=== PATIENT | male | born 1940 | race Caucasian/White ===

== ENCOUNTER → 2016-04-25 | Outpatient (CLI) | payer MEDICARE ==
[2016-04-25 13:12] LABS: ALBUMIN/GLOBULIN RATIO 1.11 (1.00-1.93); ALKALINE PHOSPHATASE 79 U/L (45-117); ALT/SGPT 24 U/L (12-78); ANION GAP 9 MEQ/L (8-16); AST/SGOT 17 U/L (15-37); BILIRUBIN,TOTAL 0.4 MG/DL (0.2-1.0); BLOOD UREA NITROGEN 22 MG/DL (7-18); CALCIUM LEVEL 8.9 MG/DL (8.8-10.2); CARBON DIOXIDE LEVEL 27 MEQ/L (21-32); CHLORIDE LEVEL 107 MEQ/L (98-107); CHOLESTEROL LEVEL 207 MG/DL (<200); CREATININE FOR GFR 0.94 MG/DL (0.70-1.30); GLOMERULAR FILTRATION RATE > 60.0 (>42); GLUCOSE, FASTING 120 MG/DL (83-110); POTASSIUM SERUM 3.7 MEQ/L (3.5-5.1); SODIUM LEVEL 143 MEQ/L (136-145); TOTAL PROTEIN 7.6 GM/DL (6.4-8.2); TRIGLYCERIDES LEVEL 211 MG/DL (<150); URIC ACID 6.1 MG/DL (3.5-7.2)
== END ==
LOC: M WUC 08:07
PROVIDERS: ATTEND Nurse Practitioner Family
DX: M10.9 Gout, unspecified (principal); E78.4 Other hyperlipidemia; I10 Essential (primary) hypertension

== ENCOUNTER → 2016-07-04 | Outpatient (REF) | payer MEDICARE ==
[2016-07-07 00:11] LABS: PSA % FREE 33.8 % (.); PSA FREE 1.52 ng/mL; PSA TOTAL 4.5 ng/mL (0.0-4.0)
== END ==
LOC: M LABWUC 19:52
PROVIDERS: ATTEND Urology
DX: R97.20 Elevated prostate specific antigen [PSA] (principal)

== ENCOUNTER → 2016-10-25 | Outpatient (CLI) | payer MEDICARE ==
[2016-10-25 09:39] LABS: ALBUMIN 3.7 GM/DL (3.2-5.2); ALKALINE PHOSPHATASE 68 U/L (45-117); ALT/SGPT 22 U/L (12-78); ANION GAP 6 MEQ/L (8-16); AST/SGOT 18 U/L (15-37); BILIRUBIN,TOTAL 0.4 MG/DL (0.2-1.0); BLOOD UREA NITROGEN 21 MG/DL (7-18); CALCIUM LEVEL 8.8 MG/DL (8.8-10.2); CARBON DIOXIDE LEVEL 30 MEQ/L (21-32); CHLORIDE LEVEL 107 MEQ/L (98-107); CHOLESTEROL LEVEL 192 MG/DL (<200); CREATININE FOR GFR 0.97 MG/DL (0.70-1.30); GLOMERULAR FILTRATION RATE > 60.0 (>42); GLUCOSE, FASTING 107 MG/DL (83-110); POTASSIUM SERUM 4.7 MEQ/L (3.5-5.1); SODIUM LEVEL 143 MEQ/L (136-145); TOTAL PROTEIN 7.4 GM/DL (6.4-8.2); TRIGLYCERIDES LEVEL 105 MG/DL (<150); URIC ACID 6.1 MG/DL (3.5-7.2)
== END ==
LOC: M WUC 08:09
PROVIDERS: ATTEND Nurse Practitioner Family
DX: I10 Essential (primary) hypertension (principal); E78.4 Other hyperlipidemia; M10.9 Gout, unspecified

== ENCOUNTER → 2016-11-11 | Outpatient (REF) | payer MEDICARE ==
[2016-11-12 14:15] LABS: PSA TOTAL 3.3 ng/mL (0.0-4.0)
== END ==
LOC: M SMT 13:04
PROVIDERS: ATTEND Nurse Practitioner Women's Health
DX: R97.20 Elevated prostate specific antigen [PSA] (principal); N40.1 Benign prostatic hyperplasia with lower urinary tract symptoms; R33.9 Retention of urine, unspecified
CPT/HCPCS: 81001; 84154; 87086; G0463

== ENCOUNTER → 2017-04-25 | Outpatient (CLI) | payer MEDICARE ==
[2017-04-25 09:00] LABS: BASO % 0.3 % (0.0-1.0); EOS # 0.1 10^3/uL (0.0-0.50); EOS % 1.1 % (0.0-3.0); HEMATOCRIT 43.8 % (42.0-52.0); HEMOGLOBIN 14.2 g/dl (14.0-18.0); IMMATURE GRANULOCYTE % 0.3 % (0-3.0); LYMPH # 1.4 10^3/uL (1.5-4.5); LYMPH % 22.5 % (24.0-44.0); MEAN CORPUSCULAR HEMOGLOBIN 27.6 pg (27.0-33.0); MEAN CORPUSCULAR HGB CONC 32.4 g/dl (32.0-36.5); MONO # 0.4 10^3/uL (0.0-0.8); MONO % 6.9 % (0.0-5.0); NEUTROPHILS # 4.2 10^3/uL (1.8-7.7); NEUTROPHILS % 68.9 % (36.0-66.0); PLATELET COUNT, AUTOMATED 190 10^3/uL (150-450); RED BLOOD COUNT 5.15 10^6/uL (4.30-6.10); RED CELL DISTRIBUTION WIDTH 13.2 % (11.5-14.5); WHITE BLOOD COUNT 6.1 10^3/uL (4.0-10.0)
[2017-04-25 09:13] LABS: ESTIMATED AVERAGE GLUCOSE 114 MG/DL (60-110); HEMOGLOBIN A1c 5.6 %
[2017-04-25 09:25] LABS: ALBUMIN/GLOBULIN RATIO 0.98 (1.00-1.93); ALKALINE PHOSPHATASE 77 U/L (45-117); ALT/SGPT 20 U/L (12-78); ANION GAP 6 MEQ/L (8-16); AST/SGOT 18 U/L (7-37); BILIRUBIN,TOTAL 0.6 MG/DL (0.2-1.0); BLOOD UREA NITROGEN 19 MG/DL (7-18); CALCIUM LEVEL 9.2 MG/DL (8.8-10.2); CARBON DIOXIDE LEVEL 31 MEQ/L (21-32); CHLORIDE LEVEL 105 MEQ/L (98-107); CREATININE FOR GFR 0.96 MG/DL (0.70-1.30); GLOMERULAR FILTRATION RATE > 60.0 (>42); GLUCOSE, FASTING 122 MG/DL (70-100); POTASSIUM SERUM 4.4 MEQ/L (3.5-5.1); SODIUM LEVEL 142 MEQ/L (136-145); TOTAL PROTEIN 8.1 GM/DL (6.4-8.2); URIC ACID 6.1 MG/DL (3.5-7.2)
== END ==
LOC: M WUC 08:17
DX: I10 Essential (primary) hypertension (principal); M10.9 Gout, unspecified; R73.01 Impaired fasting glucose
CPT/HCPCS: 84550

== ENCOUNTER → 2017-10-24 | Outpatient (CLI) | payer MEDICARE ==
[2017-10-24 09:11] LABS: BASO % 0.2 % (0.0-1.0); EOS # 0.1 10^3/uL (0.0-0.50); EOS % 1.6 % (0.0-3.0); HEMATOCRIT 39.9 % (42.0-52.0); IMMATURE GRANULOCYTE % 0.2 % (0-3.0); LYMPH # 1.2 10^3/uL (1.5-4.5); LYMPH % 23.1 % (24.0-44.0); MEAN CORPUSCULAR HEMOGLOBIN 28.3 pg (27.0-33.0); MEAN CORPUSCULAR HGB CONC 32.6 g/dl (32.0-36.5); MEAN CORPUSCULAR VOLUME 86.7 fl (80.0-96.0); MONO # 0.4 10^3/uL (0.0-0.8); MONO % 7.7 % (0.0-5.0); NEUTROPHILS # 3.4 10^3/uL (1.8-7.7); NEUTROPHILS % 67.2 % (36.0-66.0); PLATELET COUNT, AUTOMATED 147 10^3/uL (150-450); RED CELL DISTRIBUTION WIDTH 13.4 % (11.5-14.5); WHITE BLOOD COUNT 5.1 10^3/uL (4.0-10.0)
[2017-10-24 10:14] LABS: ALBUMIN 3.7 GM/DL (3.2-5.2); ALKALINE PHOSPHATASE 72 U/L (45-117); ALT/SGPT 19 U/L (12-78); ANION GAP 6 MEQ/L (8-16); AST/SGOT 19 U/L (7-37); BILIRUBIN,TOTAL 0.6 MG/DL (0.2-1.0); BLOOD UREA NITROGEN 17 MG/DL (7-18); CALCIUM LEVEL 8.9 MG/DL (8.8-10.2); CARBON DIOXIDE LEVEL 31 MEQ/L (21-32); CHLORIDE LEVEL 104 MEQ/L (98-107); CHOLESTEROL LEVEL 187 MG/DL (<200); CHOLESTEROL RISK RATIO 3.816 (<5); CREATININE FOR GFR 0.99 MG/DL (0.70-1.30); GLOMERULAR FILTRATION RATE > 60.0 (>42); GLUCOSE, FASTING 110 MG/DL (70-100); HDL CHOLESTEROL 49 MG/DL (>40); NON-HDL-C 138 MG/DL; POTASSIUM SERUM 4.3 MEQ/L (3.5-5.1); SODIUM LEVEL 141 MEQ/L (136-145); TOTAL PROTEIN 7.4 GM/DL (6.4-8.2); TRIGLYCERIDES LEVEL 85 MG/DL (<150)
== END ==
LOC: M WUC 08:13
DX: I10 Essential (primary) hypertension (principal); M10.9 Gout, unspecified; E78.4 Other hyperlipidemia
CPT/HCPCS: 84550

== ENCOUNTER → 2018-01-20 | Outpatient (CLI) | payer MEDICARE ==
[2018-01-20 10:13] LABS: ALBUMIN/GLOBULIN RATIO 1.08 (1.00-1.93); ALKALINE PHOSPHATASE 75 U/L (45-117); ALT/SGPT 31 U/L (12-78); ANION GAP 5 MEQ/L (8-16); AST/SGOT 27 U/L (7-37); BILIRUBIN,TOTAL 0.5 MG/DL (0.2-1.0); BLOOD UREA NITROGEN 26 MG/DL (7-18); CALCIUM LEVEL 9.6 MG/DL (8.8-10.2); CARBON DIOXIDE LEVEL 30 MEQ/L (21-32); CHLORIDE LEVEL 105 MEQ/L (98-107); CHOLESTEROL LEVEL 145 MG/DL (<200); CHOLESTEROL RISK RATIO 2.301 (<5); CREATININE FOR GFR 0.89 MG/DL (0.70-1.30); GLOMERULAR FILTRATION RATE > 60.0 (>42); GLUCOSE, FASTING 110 MG/DL (70-100); HDL CHOLESTEROL 63 MG/DL (>40); LDL CHOLESTEROL 71 MG/DL (<100); NON-HDL-C 82 MG/DL; POTASSIUM SERUM 5.1 MEQ/L (3.5-5.1); SODIUM LEVEL 140 MEQ/L (136-145); TOTAL PROTEIN 7.7 GM/DL (6.4-8.2); TRIGLYCERIDES LEVEL 54 MG/DL (<150)
[2018-01-21 15:23] LABS: PSA TOTAL 3.5 ng/mL (0.0-4.0)
== END ==
LOC: M WUC 08:35 → M LAB 09:18
DX: N40.0 Benign prostatic hyperplasia without lower urinary tract symptoms (principal); E78.49 Other hyperlipidemia; I10 Essential (primary) hypertension
CPT/HCPCS: 80053

== ENCOUNTER → 2018-06-27 | Outpatient (CLI) | payer MEDICARE ==
[2018-06-27 13:45] LABS: HEMATOCRIT 39.1 % (42.0-52.0); HEMOGLOBIN 12.3 g/dl (13.5-17.5); MEAN CORPUSCULAR HEMOGLOBIN 28.1 pg (27.0-33.0); MEAN CORPUSCULAR HGB CONC 31.5 g/dl (32.0-36.5); MEAN CORPUSCULAR VOLUME 89.5 fl (80.0-96.0); PLATELET COUNT, AUTOMATED 185 10^3/uL (150-450); RED BLOOD COUNT 4.37 10^6/uL (4.30-6.10); WHITE BLOOD COUNT 6.2 10^3/uL (4.0-10.0)
[2018-06-27 13:48] LABS: CALCIUM LEVEL 9.1 MG/DL (8.8-10.2); CREATININE FOR GFR 1.86 MG/DL (0.70-1.30); GLOMERULAR FILTRATION RATE 37.7 (>42); POTASSIUM SERUM 4.3 MEQ/L (3.5-5.1)
[2018-06-27 14:09] LABS: APPEARANCE, URINE CLEAR (CLEAR); BACTERIA, URINE AUTO NEGATIVE (NEGATIVE); BILIRUBIN, URINE AUTO NEGATIVE (NEGATIVE); BLOOD, URINE BLOOD NEGATIVE (NEGATIVE); COLOR, URINE STRAW (YELLOW); GLUCOSE, URINE (UA) AUTO NEGATIVE (NEGATIVE); KETONE, URINE AUTO NEGATIVE (NEGATIVE); LEUKOCYTE ESTERASE, URINE AUTO NEGATIVE (NEGATIVE); NITRITE, URINE AUTO NEGATIVE (NEGATIVE); PROTEIN, URINE AUTO NEGATIVE (NEGATIVE); RBC, URINE AUTO 2 /HPF (0-3); SPECIFIC GRAVITY URINE AUTO 1.008 (1.002-1.035); SQUAMOUS EPITHELIAL CELL UR AU 0 /HPF (0-6); UROBILINOGEN, URINE AUTO 0.2 mg/dL (0.0-2.0); WBC, URINE AUTO 1 /HPF (0-3)
== END ==
LOC: M SMT 09:33
PROVIDERS: ATTEND Nurse Practitioner Women's Health
DX: R33.9 Retention of urine, unspecified (principal)
CPT/HCPCS: 36415; 51702; 51798; 80048; 81001; 85027; 87086; G0463

== ENCOUNTER → 2018-06-28 | Outpatient (CLI) | payer MEDICARE ==
--- NOTE | 2018-06-28 10:44 | REP ---
CT abdomen pelvis without IV or oral contrast: History: BPH. Urinary incontinence and retention. No comparison CT study. 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 There are fibrotic changes in the lung bases bilaterally. Vascular calcification is noted. Calcified gallstone is visible in the gallbladder. The liver and spleen are normal in size homogeneous in texture. No adrenal lesion is seen on either side. The pancreas is unremarkable. There is left colonic diverticulosis fairly extensively without evidence of diverticulitis. Small and large bowel loops are otherwise unremarkable. The appendix is not definitely appreciated but there is no inflammatory change. There is a Garduno catheter in the urinary bladder which shows a diffuse somewhat heterogeneous and a wall thickening but is otherwise empty. There is perivesical edema in the perivesical fat. There are several bladder calculi inferiorly adjacent to the Garduno balloon in the lumen of the urinary bladder. The largest of these measures 8 mm in greatest diameter. There are three separately identifiable bladder calculi. There are also some phleboliths in the pelvis. Prostate is enlarged. Seminal vesicles are unremarkable. There is bilateral moderate hydronephrosis. Redundant dilated ureters are seen. No ureteral calculus is observed. There is an intrarenal calculus in the right mid kidney measuring 4 mm in diameter. There is a arterial vascular calcification in the left renal pelvis. No nephrolithiasis on the left. No abnormalities noted in the pancreas. No retroperitoneal mass or adenopathy is seen. Impression: Moderate degree of bilateral hydronephrosis and hydroureter. No ureteral calculus seen. Marked diffuse bladder wall thickening. There are several bladder calculi. Prostate is enlarged. Garduno catheter noted. There is an intrarenal calculus in the right mid kidney 4 mm in diameter. Electronically Signed by Levon Mercado MD 06/28/2018 08:03 P
== END ==
LOC: M RAD 07:17
PROVIDERS: ATTEND Nurse Practitioner Women's Health
DX: N40.1 Benign prostatic hyperplasia with lower urinary tract symptoms (principal); N13.2 Hydronephrosis with renal and ureteral calculous obstruction

== ENCOUNTER → 2018-07-04 | Outpatient (CLI) | payer MEDICARE ==
[2018-07-04 13:53] LABS: CALCIUM LEVEL 8.9 MG/DL (8.8-10.2); CREATININE FOR GFR 1.76 MG/DL (0.70-1.30); GLOMERULAR FILTRATION RATE 40.2 (>42); POTASSIUM SERUM 4.7 MEQ/L (3.5-5.1)
== END ==
LOC: M SMT 09:26
PROVIDERS: ATTEND Nurse Practitioner Women's Health
DX: R33.9 Retention of urine, unspecified (principal)
CPT/HCPCS: 36415; 80048; G0463

== ENCOUNTER → 2018-07-24 | Outpatient (CLI) | payer MEDICARE ==
[2018-07-24 08:59] LABS: BASO % 0.4 % (0.0-1.0); EOS # 0.2 10^3/uL (0.0-0.50); EOS % 3.7 % (0.0-3.0); HEMOGLOBIN 11.5 g/dl (13.5-17.5); LYMPH # 1.2 10^3/uL (1.5-4.5); LYMPH % 23.8 % (24.0-44.0); MEAN CORPUSCULAR HEMOGLOBIN 28.2 pg (27.0-33.0); MEAN CORPUSCULAR HGB CONC 31.9 g/dl (32.0-36.5); MEAN CORPUSCULAR VOLUME 88.2 fl (80.0-96.0); MONO # 0.4 10^3/uL (0.0-0.8); MONO % 8.2 % (0.0-5.0); NEUTROPHILS # 3.2 10^3/uL (1.8-7.7); NEUTROPHILS % 63.3 % (36.0-66.0); PLATELET COUNT, AUTOMATED 150 10^3/uL (150-450); RED BLOOD COUNT 4.08 10^6/uL (4.30-6.10); WHITE BLOOD COUNT 5.1 10^3/uL (4.0-10.0)
[2018-07-24 09:52] LABS: ALBUMIN 3.7 GM/DL (3.2-5.2); ALT/SGPT 21 U/L (12-78); BILIRUBIN,TOTAL 0.4 MG/DL (0.2-1.0); BLOOD UREA NITROGEN 25 MG/DL (7-18); CALCIUM LEVEL 8.8 MG/DL (8.8-10.2); CARBON DIOXIDE LEVEL 30 MEQ/L (21-32); CHLORIDE LEVEL 106 MEQ/L (98-107); CHOLESTEROL LEVEL 139 MG/DL (<200); CHOLESTEROL RISK RATIO 2.482 (<5); CREATININE FOR GFR 1.19 MG/DL (0.70-1.30); GLOMERULAR FILTRATION RATE > 60.0 (>42); GLUCOSE, FASTING 110 MG/DL (70-100); HDL CHOLESTEROL 56 MG/DL (>40); LDL CHOLESTEROL 68 MG/DL (<100); NON-HDL-C 83 MG/DL; POTASSIUM SERUM 4.5 MEQ/L (3.5-5.1); SODIUM LEVEL 141 MEQ/L (136-145); TOTAL PROTEIN 7.1 GM/DL (6.4-8.2); TRIGLYCERIDES LEVEL 73 MG/DL (<150); URIC ACID 6.7 MG/DL (3.5-7.2)
[2018-07-24 10:32] LABS: HEMOGLOBIN A1c 5.6 %
== END ==
LOC: M LAB 08:16
PROVIDERS: ATTEND Nurse Practitioner Family
DX: I10 Essential (primary) hypertension (principal); M10.9 Gout, unspecified; R73.01 Impaired fasting glucose; E78.49 Other hyperlipidemia

== ENCOUNTER 2019-05-03 10:21 | Day surgery (SDC) | payer MEDICARE ==
[~2019-05-03] VITALS: Ht 180.3 cm; Wt 77.1 kg
[~2019-05-03 10:21] MED LIST: ASPI81TA85 PO; ATEN50TA9 PO; ATOR1TAB19 PO; CEFUROXIME 1MG/0.1ML INTRACAMERAL INJ As Ordered ONE; DUOVISC (0.50ML VISCOAT/0.55ML PROVISC) OPHTH KIT As Ordered ONE; FISH1000 PO; LIDOCAINE 1% MDV 20ML VIAL SQ PRN; MIDAZOLAM INJ 2 MG/2 ML VIAL (J2250) As Ordered ONE; OFLOXACIN 0.3 % (OCUFLOX) OPTH SOL 5ML OD ONE; PHENYLEPHRINE 2.5% OPHTH SOL 2ML OD ONE; POVIDONE-IODINE 5% OPHTH PREP SOL 30ML As Ordered ONE; PROPARACAINE 0.5% OPHTH SOL 15ML OD ONE; TAMS1CAP17 PO; TROPICAMIDE 1% OPHTH SOLN 2ML OD ONE; fentaNYL 100 MCG/2 ML INJECTION (J3010) As Ordered ONE
[2019-05-03] MEDS ORDERED: BSS IRR 500ML/OMIDRIA 4ML IRR BAG (OR ONLY) (J1097 PER ML) As Ordered ONE (12:24)
[2019-05-03 13:22] VITALS: BP 164/74
--- NOTE | 2019-05-04 22:14 | RO ---
DATE OF PROCEDURE: 05/03/2019 PREOPERATIVE DIAGNOSIS: 1. Visually significant nuclear sclerotic cataract right eye. POSTOPERATIVE DIAGNOSIS: 1. Visually significant nuclear sclerotic cataract right eye. PROCEDURE: 1. Cataract extraction with use of phacoemulsification and placement of intraocular lens, AU00T0, 19.0 D, right eye. SURGEON: Yoandy Cervantes DO COIN MACHINE OPERATOR: None. ANESTHESIA: Local with monitored anesthesia care (MAC), with Omidria (4 mL/500 mL) mixed into irrigation solution. COMPLICATIONS: None. POSTOPERATIVE CONDITION: Stable. INDICATIONS FOR SURGERY: 1. Blurred vision affecting patients activities of daily living. DESCRIPTION OF PROCEDURE: The patient was seen in the preoperative area and properly identified. The correct operative eye was identified and marked. The patient received topical anesthetic, antibiotics, and topical dilating drops. The patient was then transferred to the operating room. The correct side was re-identified, and a time-out was performed. The eye was prepped and draped in a sterile fashion. The eyelids were isolated with Tegaderm tape, and the lids were held open with an adjustable speculum. A 1.0 mm paracentesis incision was made. Intraocular preservative-free Shugarcaine was then injected into the anterior chamber. Viscoelastic was then injected into the anterior chamber through the paracentesis. Using a 2.4 mm sharp-tipped keratome, the anterior chamber was entered via a temporal clear cornea incision. A continuous curvilinear capsulorrhexis was created with Utrata forceps. Hydrodissection was performed with balanced salt solution (BSS) on a blunt cannula until the nucleus was able to rotate freely. The crystalline lens was phacoemulsified and aspirated. Irrigation/aspiration was used to remove the cortical material. Cohesive viscoelastic was placed into the capsular bag to deepen it. The implant was placed into the capsular bag and allowed to unfold. Placement was confirmed by visualizing the anterior capsulorrhexis. Irrigation/aspiration was used to remove the viscoelastic. The clear corneal incision was hydrated with BSS on a blunt cannula. The lens was well positioned. The incisions were then tested for leaks and found to be negative. Cefuroxime was injected into the anterior chamber. The eye was then palpated for appropriate pressure and adjusted accordingly with BSS. The eyelid speculum was then carefully removed. A shield was placed over the eye. The patient tolerated the procedure well and was discharged to the recovery unit in a stable condition. ANGY
== END 2019-05-03 13:30 | disposition home or self-care (01) ==
LOC: M SDC 10:21
PROVIDERS: ATTEND Ophthalmology
DX: H25.11 Age-related nuclear cataract, right eye (principal); I10 Essential (primary) hypertension; E78.5 Hyperlipidemia, unspecified; Z79.82 Long term (current) use of aspirin; Z87.891 Personal history of nicotine dependence; Z79.899 Other long term (current) drug therapy
CPT/HCPCS: 66984; J1097; J2250; J3010; V2632

== ENCOUNTER → 2020-02-04 | Outpatient (CLI) | payer MEDICARE ==
[~2020-02-04] MED LIST changes: -ASPI81TA85 PO; +ASPI81TA86 PO; -CEFUROXIME 1MG/0.1ML INTRACAMERAL INJ As Ordered ONE; -DUOVISC (0.50ML VISCOAT/0.55ML PROVISC) OPHTH KIT As Ordered ONE; -LIDOCAINE 1% MDV 20ML VIAL SQ PRN; -MIDAZOLAM INJ 2 MG/2 ML VIAL (J2250) As Ordered ONE; -OFLOXACIN 0.3 % (OCUFLOX) OPTH SOL 5ML OD ONE; -PHENYLEPHRINE 2.5% OPHTH SOL 2ML OD ONE; -POVIDONE-IODINE 5% OPHTH PREP SOL 30ML As Ordered ONE; -PROPARACAINE 0.5% OPHTH SOL 15ML OD ONE; -TROPICAMIDE 1% OPHTH SOLN 2ML OD ONE; -fentaNYL 100 MCG/2 ML INJECTION (J3010) As Ordered ONE
[2020-02-04 08:11] LABS: HEMATOCRIT 39.6 % (42.0-52.0); HEMOGLOBIN 12.4 g/dl (13.5-17.5); MEAN CORPUSCULAR HEMOGLOBIN 27.6 pg (27.0-33.0); MEAN CORPUSCULAR HGB CONC 31.3 g/dl (32.0-36.5); PLATELET COUNT, AUTOMATED 165 10^3/uL (150-450); WHITE BLOOD COUNT 5.1 10^3/uL (4.0-10.0)
[2020-02-04 08:42] LABS: ALBUMIN 3.7 GM/DL (3.2-5.2); BILIRUBIN,TOTAL 0.6 MG/DL (0.2-1.0); CHOLESTEROL RISK RATIO 2.775 (<5); CREATININE FOR GFR 1.36 MG/DL (0.70-1.30); POTASSIUM SERUM 4.5 MEQ/L (3.5-5.1); PROSTATIC SPECIFIC AG MONITOR 6.17 NG/ML (< 4.00); TOTAL PROTEIN 7.2 GM/DL (6.4-8.2)
[2020-02-04 14:17] LABS: HEMOGLOBIN A1c 5.4 %
== END ==
LOC: M LAB 07:07
PROVIDERS: ATTEND Family Medicine
DX: N40.0 Benign prostatic hyperplasia without lower urinary tract symptoms (principal); I10 Essential (primary) hypertension

== ENCOUNTER → 2021-02-06 | Outpatient (CLI) | payer MEDICARE ==
[2021-02-06 12:47] LABS: HEMATOCRIT 38.4 % (42.0-52.0); HEMOGLOBIN 12.2 g/dl (13.5-17.5); MEAN CORPUSCULAR HEMOGLOBIN 27.9 pg (27.0-33.0); MEAN CORPUSCULAR HGB CONC 31.8 g/dl (32.0-36.5); MEAN CORPUSCULAR VOLUME 87.9 fl (80.0-96.0); PLATELET COUNT, AUTOMATED 146 10^3/uL (150-450); RED BLOOD COUNT 4.37 10^6/uL (4.30-6.10)
[2021-02-06 13:18] LABS: HEMOGLOBIN A1c 5.5 %
[2021-02-06 13:20] LABS: ALBUMIN 3.4 GM/DL (3.2-5.2); BILIRUBIN,TOTAL 0.4 MG/DL (0.2-1.0); CHOLESTEROL RISK RATIO 2.307 (<5); CREATININE FOR GFR 1.36 MG/DL (0.70-1.30); GLOMERULAR FILTRATION RATE 53.8 (>42); POTASSIUM SERUM 4.4 MEQ/L (3.5-5.1); PROSTATIC SPECIFIC AG MONITOR 5.17 NG/ML (< 4.00); TOTAL PROTEIN 7.1 GM/DL (6.4-8.2); URIC ACID 7.3 MG/DL (3.5-7.2)
== END ==
LOC: M LAB 12:24
PROVIDERS: ATTEND Family Medicine
DX: N40.0 Benign prostatic hyperplasia without lower urinary tract symptoms (principal); I10 Essential (primary) hypertension; M10.9 Gout, unspecified; R73.01 Impaired fasting glucose

== ENCOUNTER → 2022-01-19 | Outpatient (CLI) | payer MEDICARE ==
[2022-01-19 09:17] LABS: HEMATOCRIT 40.4 % (42.0-52.0); HEMOGLOBIN 12.8 g/dl (13.5-17.5); MEAN CORPUSCULAR HEMOGLOBIN 28.1 pg (27.0-33.0); MEAN CORPUSCULAR HGB CONC 31.7 g/dl (32.0-36.5); MEAN CORPUSCULAR VOLUME 88.8 fl (80.0-96.0); PLATELET COUNT, AUTOMATED 157 10^3/uL (150-450); RED BLOOD COUNT 4.55 10^6/uL (4.30-6.10); WHITE BLOOD COUNT 4.9 10^3/uL (4.0-10.0)
[2022-01-19 11:17] LABS: CREATININE FOR GFR 1.32 MG/DL (0.70-1.30); GLOMERULAR FILTRATION RATE 55.6 (>35)
[2022-01-19 11:18] LABS: ALBUMIN 3.4 GM/DL (3.2-5.2); BILIRUBIN,TOTAL 0.6 MG/DL (0.2-1.0); CALCIUM LEVEL 8.9 MG/DL (8.8-10.2); CHOLESTEROL RISK RATIO 2.62 (<5); LDL CHOLESTEROL 61.2 MG/DL (<100); TOTAL PROTEIN 7.2 GM/DL (6.4-8.2)
[2022-01-19 11:19] LABS: HEMOGLOBIN A1c 5.5 %
[2022-01-19 11:19] LABS: PROSTATIC SPECIFIC AG MONITOR 4.87 NG/ML (< 4.00)
== END ==
LOC: M LAB 08:26
PROVIDERS: ATTEND Family Medicine
DX: N40.0 Benign prostatic hyperplasia without lower urinary tract symptoms (principal); I10 Essential (primary) hypertension; R73.01 Impaired fasting glucose

== ENCOUNTER → 2023-03-22 | Outpatient (CLI) | payer MEDICARE ==
[2023-03-22 08:48] LABS: BASO % 0.5 % (0.0-1.0); EOS # 0.4 10^3/uL (0.0-0.5); EOS % 5.7 % (0.0-3.0); HEMATOCRIT 41.6 % (42.0-52.0); HEMOGLOBIN 13.5 g/dl (13.5-17.5); LYMPH # 1.4 10^3/uL (1.5-5.0); LYMPH % 23.4 % (24.0-44.0); MEAN CORPUSCULAR HEMOGLOBIN 28.5 pg (27.0-33.0); MEAN CORPUSCULAR HGB CONC 32.5 g/dl (32.0-36.5); MEAN CORPUSCULAR VOLUME 87.8 fl (80.0-96.0); MONO # 0.6 10^3/uL (0.0-0.8); MONO % 10.3 % (2.0-8.0); NEUTROPHILS # 3.7 10^3/uL (1.5-8.5); NEUTROPHILS % 59.8 % (36.0-66.0); PLATELET COUNT, AUTOMATED 173 10^3/uL (150-450); RED BLOOD COUNT 4.74 10^6/uL (4.30-6.10); WHITE BLOOD COUNT 6.1 10^3/uL (4.0-10.0)
[2023-03-22 08:55] LABS: HEMOGLOBIN A1c 5.6 % (4.0-6.0)
[2023-03-22 09:09] LABS: URIC ACID 10.1 MG/DL (3.7-9.2)
[2023-03-22 09:11] LABS: PROSTATIC SPECIFIC AG MONITOR 4.64 NG/ML (< 4.00)
[2023-03-22 09:13] LABS: ALBUMIN 3.5 G/DL (3.2-5.2); BILIRUBIN,TOTAL 0.6 MG/DL (0.3-1.2); CHOLESTEROL RISK RATIO 3.81 (<5); CREATININE FOR GFR 1.7 MG/DL (0.70-1.30); GLOMERULAR FILTRATION RATE 41.4 (>35); HDL CHOLESTEROL 37.7 MG/DL (>40); LDL CHOLESTEROL 80.9 MG/DL (<100); NON-HDL-C 106.3 MG/DL; POTASSIUM SERUM 4.5 MMOL/L (3.5-5.1); TOTAL PROTEIN 7.1 G/DL (5.7-8.2)
== END ==
LOC: M LAB 07:53
PROVIDERS: ATTEND Family Medicine
DX: N40.0 Benign prostatic hyperplasia without lower urinary tract symptoms (principal); I10 Essential (primary) hypertension; M10.9 Gout, unspecified; R73.01 Impaired fasting glucose

== ENCOUNTER → 2024-06-12 | Outpatient (CLI) | payer MEDICARE ==
[2024-06-12 09:30] LABS: ALBUMIN 3.3 G/DL (3.2-5.2); BILIRUBIN,TOTAL 0.5 MG/DL (0.3-1.2); CALCIUM LEVEL 9.1 MG/DL (8.3-10.6); CREATININE FOR GFR 1.54 MG/DL (0.70-1.30); GLOMERULAR FILTRATION RATE 46.2 (>35); POTASSIUM SERUM 4.6 MMOL/L (3.5-5.1); TOTAL PROTEIN 7.3 G/DL (5.7-8.2)
[2024-06-12 09:53] LABS: HEMOGLOBIN A1c 5.5 % (4.0-6.0)
== END ==
LOC: M LAB 08:09
PROVIDERS: ATTEND Family Medicine
DX: R73.01 Impaired fasting glucose (principal)